=== PATIENT | male | born 1975 | race African-American/Black ===

== ENCOUNTER 2020-03-29 06:26 | Emergency (ER) | payer BC ==
[2020-03-29 06:53] VITALS: BP 174/100; PULSE 108; TEMP 98; BMI 30.7
--- NOTE | 2020-03-29 07:34 | PDOC ---
History of Present Illness - General Chief Complaint: Pain, Acute Stated Complaint: EVALUATION Time Seen by Provider: 03/29/20 07:33 History Source: Patient Exam Limitations: No Limitations - History of Present Illness Initial Comments: 03/29/20 07:34 44yM w PMHx HTN, eczema presenting w 3wk intermittent penile and scrotal white lesions. Recently lived with hotel with potential exposure to bed bugs. Did not take any meds for skin lesions or have it evaluated by Dr. [place] fevers, n/v, dysuria, bowel mvmt changes, penile pain/discharge/bleeding, SI/HI, hallucinations. Past History - Medical History Allergies/Adverse Reactions: Allergies Allergy/AdvReac Type Severity Reaction Status Date / Time No Known Allergies Allergy Verified 03/29/20 06:49 COPD: No - Immunization History Immunization Up to Date: Yes - Psycho-Social/Smoking History Smoking History: Current some day smoker Number of Cigarettes Smoked Daily: 12 Information on smoking cessation initiated: No - Substance Abuse Hx (Audit-C & DAST Scrn) How often the patient has a drink containing alcohol: 2-4 times / month Number of drinks the patient has on a typical day: 1 or 2 Score: In Men: 4 or > Positive; In Women: 3 or > Positive: 2 Screen Result (Pos requires Nsg. Audit-10AR): Negative In the last yr the pt used illegal drug/Rx for NonMed reason: Yes Score: Yes response is considered Positive: 1 Screen Result (Positive result requires Nsg. DAST-10): Positive Review of Systems - Review of Systems Constitutional: No: Chills, Fever HEENTM: No: Eye Pain, Nose Pain Respiratory: No: Cough, Shortness of Breath Cardiac (ROS): No: Chest Pain, Palpitations ABD/GI: No: Constipated, Diarrhea, Nausea, Vomiting : No: Burning, Dysuria Musculoskeletal: No: Back Pain, Joint Pain Integumentary: No: Bruising, Flushing Neurological: No: Headache, Seizure Psychiatric: No: Anxiety, Depression Endocrine: No: Intolerance to Cold, Intolerance to Heat Hematologic/Lymphatic: No: Anemia, Blood Clots *Physical Exam - Vital Signs Last Vital Signs Temp Pulse Resp BP Pulse Ox 98.0 F 108 H 20 174/100 H 98 03/29/20 06:46 03/29/20 06:46 03/29/20 06:46 03/29/20 06:46 03/29/20 06:46 - Physical Exam General Appearance: Yes: Nourished, Appropriately Dressed HEENT: positive: EOMI, WILY, Normal Voice, Hearing Grossly Normal. negative: Scleral Icterus (R), Scleral Icterus (L) Respiratory/Chest: positive: Lungs Clear, Normal Breath Sounds. negative: Chest Tender, Respiratory Distress Cardiovascular: positive: Regular Rhythm, S1, S2, Tachycardia. negative: Murmur Gastrointestinal/Abdominal: positive: Normal Bowel Sounds, Flat, Soft. negative: Tender, Organomegaly Male Genitalia: positive: normal genitalia, other (no skin lesions/abrasions/excoriations). negative: discharge, testicular mass, hernia Integumentary: positive: Normal Color, Dry (dry, ezcema eyebrows), Warm Neurologic: positive: Fully Oriented, Alert, Normal Mood/Affect, Normal R esponse, Responsive. negative: Numbness, Confused, Disoriented Medical Decision Making - Medical Decision Making 03/29/20 09:39 44yM w PMHx HTN, eczema presenting w 3wk intermittent penile and scrotal white lesions. Scrotal exam showed no masses/discharge/skin abrasions/lesions/ecchymosis. No sign of bed bugs. Pt is AOx3, no evidence of visual/auditory hallucinations, no sign of intoxication. After exam, pt refused paperwork and eloped before being evaluated by attending. Discharge - Discharge Information Problems reviewed: Yes Clinical Impression/Diagnosis: Penile lesion Condition: Good Disposition: AGAINST MEDICAL ADVICE - Follow up/Referral - Patient Discharge Instructions - Post Discharge Activity
--- NOTE | 2020-03-29 08:24 | PDOC ---
Attending Attestation - Resident Resident Name: Rodriguez Carmichael - ED Attending Attestation I have performed the following: I have examined & evaluated the patient, The case was reviewed & discussed with the resident, I agree w/resident's findings & plan - HPI HPI: 03/29/20 08:18 Per resident note: 44y/o M no sig pmh other than frequent marijuana use presented for evaluation of possible bugs on his person. New complaint over the last few days, denies any ideations or hallucinations and feels he actually saw them. - Physicial Exam PE: 03/29/20 08:24 See resident note: pt left before my physical exam. he was well appearing and coherent while walking out, stable and in nad. - Medical Decision Making 03/29/20 08:24 44y/o M for evaluation of possible bug infestation. HD stable, exam normal. He eloped after no longer seeing the bugs and a normal exam. He left prior to my complete evaluation but after resident evaluation. ? drug induced psychosis, now resolved pt is currently asx without ideations or active hallucinations he is deemed safe and not a danger to himself or others, and states he had to leave to go to work Discharge - Discharge Information Problems reviewed: Yes Clinical Impression/Diagnosis: Itchy skin - Follow up/Referral - Patient Discharge Instructions - Post Discharge Activity
== END 2020-03-29 08:53 | disposition left against medical advice (07) ==
LOC: JER 06:26
DX: N48.9 Disorder of penis, unspecified (principal)
CPT/HCPCS: 99282-25